=== PATIENT | male | born 1940 | race Caucasian/White ===

== ENCOUNTER 2023-06-07 12:13 | Day surgery (SDC) | payer MEDICARE, SELFPAY ==
--- NOTE | 2023-06-06 09:18 | P.CONAN_ITS ---
Documented by User: Eboni Okeefe NP 06/06/23 09:18 HPI - Anesthesia Eval Consult details Narrative: 83yo M for Upper Endoscopy [facility] Past Medical History Medical History Attention to nephrostomy Aortic root aneurysm Enlarged prostate Back pain Chronic kidney disease Hyperlipidemia Hypothyroidism HTN (hypertension) Surgical History Surgical History History of bilateral knee replacement Social History Social History Tobacco use type: Cigar Are you DNR?: No Advance Directives: No Advance Directives Information Provided: Yes Recently lost weight without trying: No Meds Allergies Allergy/AdvReac Type Severity Reaction Status Date / Time No Known Allergies Allergy Unverified 06/06/23 07:03 Home Medications Medication Instructions Recorded Confirmed Last Taken Type amlodipine 5 mg tablet 5 mg PO DAILY 06/06/23 06/07/23 History atenolol 25 mg tablet 25 mg PO DAILY 06/06/23 06/07/23 History colchicine (gout) 0.6 mg tablet 0.6 mg PO BID 06/06/23 Unknown History folic acid 1 mg tablet 1 mg PO DAILY 06/06/23 Unknown History levothyroxine 125 mcg tablet PO 06/06/23 06/07/23 History Exam Exam Date and Time: June 06, 2023 0918 Assessment and Plan Assessment Anesthesia Assessment: Chart Reviewed Documented by User: Beata Toledo MD 06/07/23 13:48 [facility] Past Medical History Medical History Attention to nephrostomy Aortic root aneurysm Enlarged prostate Back pain Chronic kidney disease Hyperlipidemia Hypothyroidism HTN (hypertension) Family History Family history of problems with anesthesia: No Surgical History Surgical History History of bilateral knee replacement History of Problems with Anesthesia: No Social History Social History Tobacco use type: Cigar Are you DNR?: No Advance Directives: No Advance Directives Information Provided: Yes Recently lost weight without trying: No Meds Allergies Allergy/AdvReac Type Severity Reaction Status Date / Time No Known Allergies Allergy Unverified 06/06/23 07:03 Home Medications Medication Instructions Recorded Confirmed Last Taken Type amlodipine 5 mg tablet 5 mg PO DAILY 06/06/23 06/07/23 History atenolol 25 mg tablet 25 mg PO DAILY 06/06/23 06/07/23 History colchicine (gout) 0.6 mg tablet 0.6 mg PO BID 06/06/23 Unknown History folic acid 1 mg tablet 1 mg PO DAILY 06/06/23 Unknown History levothyroxine 125 mcg tablet PO 06/06/23 06/07/23 History Exam Airway Mallampati Class: II TM Dist: >3cm Neck ROM: Limited Loose/Missing/Broken Teeth: Lower Heart: rrr Lungs: cta Assessment and Plan Assessment Anesthesia Assessment: Anesthesia Plan Discussed Final Anesthetic Review Family History of Problems with Anesthesia: No History of Problems with Anesthesia: No NPO: Yes ASA Class: III Final Preanesthetic Review: No Changes in Pt Med Stat, Meds/Allgs Chart Reviewed, Consent Obtained/Reviewed and Anes Risks/Benef Reviewed Patient Risk: Intermediate Procedure Risk: Intermediate Anesthetic Plan Anesthetic Plan: MAC: Disposition: Standard PACU
[2023-06-07 12:38] VITALS: BMI 32.7
[2023-06-07 12:45] VITALS: BP 139/82; PULSE 65; RESP 18; TEMP 36.1; O2SAT 97
[2023-06-07] MEDS: Lactated Ringers 1,000 ML 100 ML IVCONT (13:13)
--- NOTE | 2023-06-07 13:54 | MHC.SHP ---
Pre-Procedural Eval Section A Date of Service: 06/07/23 Section B Chief Complaint: u Details of Present Illness: see H&P no changes Relevant Family History (Specify if Yes): No Relevant Social History: None Present Medications: see Short Stay Collaborative assessment Medical History: No relevant PMH History of Previous Operations: No relevant previous surgery Allergies: Allergies Allergy/AdvReac Type Severity Reaction Status Date / Time No Known Allergies Allergy Unverified 06/06/23 07:03 Review of Systems Sugical H&P ROS: Negative: Constitution, Cardiovascular, Respiratory, Neurological, Psychiatric, Hem-Onc, Allergic/Immunologic, Gastrointestinal, Genitourinary, Musculoskeletal, Integumentary, Endocrine and Eyes/Ears/Nose/Throat Exam Surgical H&P Exam: Normal: HEENT, Normal: Heart, Normal: Lungs, Normal: Extremities, Normal: Abdomen, Normal: Skin and Normal: Neurological Plan Diagnosis/Plan: Unchanged I have reviewed the history and physical and performed a pertinent physical examination on my patient. No changes have occurred unless specified. Time Spent With Patient Time: Total time managing care of this patient today ____ minutes.
--- NOTE | 2023-06-07 14:30 | P.BOP_ITS ---
Brief Operative Note Date of Service: 06/07/23 Pre-op diagnosis: dysphagia abnormal barium swallow Post-op diagnosis: same Surgeon: Lit Fall Anesthesia: MAC Was an Motors And Generators Inspector used for this Procedure?: No Estimated blood loss (mL): 2 Pathology: other Condition: stable Disposition: PACU
[2023-06-07 14:34] VITALS: BP 96/53; PULSE 59; RESP 16; TEMP 36.1; O2SAT 94
[2023-06-07 14:49] VITALS: BP 101/63; PULSE 64; RESP 20; TEMP 36.3; O2SAT 97
--- NOTE | 2023-06-07 23:34 | OP_ITS ---
DATE OF SERVICE: 06/07/2023 SURGEON: Lit Fall MD INDICATIONS: Dysphagia and abnormal barium swallow. PREOPERATIVE DIAGNOSIS: POSTOPERATIVE DIAGNOSIS: PROCEDURE PERFORMED: Upper endoscopy with biopsy and balloon dilation. ESTIMATED BLOOD LOSS: COMPLICATIONS: ANESTHESIA: Monitored anesthesia care. ASSISTANTS: SPECIMENS: DESCRIPTION OF PROCEDURE: A history and physical was performed. The risks and benefits of the procedure were explained to the patient. Informed consent was obtained. The patient was placed in the left lateral decubitus position. The Olympus video gastroscope was introduced into the esophagus, stomach, and duodenum. Examination was performed. The scope was removed. He tolerated the procedure well and was returned to the recovery area in stable condition. FINDINGS: The upper esophageal sphincter was somewhat tight subjectively. No mass was identified. The esophagus was otherwise normal. The lower esophageal sphincter was widely patent. There was no esophagitis. Balloon dilation of the upper esophageal sphincter was performed at 8 to 18 mm, in the lower esophageal sphincter to 20 mm with a through the scope balloon inflated to its recommended pressure for 60 seconds. Stomach: The stomach showed 2 small gastric polyps, which were biopsied. These were present in the body and fundus and had the appearance of fundic gland polyps. Antral biopsies were also obtained. Duodenum: The bulb and 2nd portion were normal. IMPRESSION: 1. Dysphagia. 2. Gastric polyps. RECOMMENDATION: Follow up the biopsy results. MD GARETT Deluca/KIRILL / [id number]
== END 2023-06-07 15:17 | disposition home or self-care (01) ==
PROVIDERS: PCP Internal Medicine; Visit Provider Internal Medicine Gastroenterology
PROC: 0DJ08ZZ Inspection of Upper Intestinal Tract, Via Natural or Artificial Opening Endoscopic (ICD-10-PCS; CPT 43235; principal; 2023-06-07 13:40)
DX: R13.19 Other dysphagia (principal); K31.7 Polyp of stomach and duodenum; I12.9 Hypertensive chronic kidney disease with stage 1 through stage 4 chronic kidney disease, or unspecified chronic kidney disease; F17.290 Nicotine dependence, other tobacco product, uncomplicated; N18.9 Chronic kidney disease, unspecified; E03.9 Hypothyroidism, unspecified; E78.5 Hyperlipidemia, unspecified; Z79.899 Other long term (current) drug therapy
CPT/HCPCS: 43249; 43239; 88305; 88342; C1726

== ENCOUNTER 2024-04-30 09:40 | Outpatient (AMB) | payer MEDICARE, SELFPAY ==
--- NOTE | 2024-04-30 09:53 | A.OFFVIS_ITS ---
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 He describes his pains as sharp in nature. His pains have gotten worse over the last few years in spite of continued non operative treatments. The patient did do quite a bit of heavy weightlifting in the past for exercise. He has had cortisone injections in the past which gave him fairly good relief. Would like to hold off on surgery if at all possible. He has tried Tylenol and anti-inflammatory medicines which gave him minimal relief. Accompanied by: Spouse Allergies No Known Allergies Allergy (Verified 04/30/24 09:57) Medication List - Last Reconciled 05/01/24 by Clive Griffith MD amlodipine 5 mg PO DAILY atenolol 25 mg PO DAILY folic acid 1 mg PO DAILY levothyroxine PO PFSH Medical History Attention to nephrostomy Aortic root aneurysm Enlarged prostate Back pain Chronic kidney disease Hyperlipidemia Hypothyroidism HTN (hypertension) Surgical History History of bilateral knee replacement Social History Tobacco use type: Cigar Physical Exam Const Other: Well-nourished well-developed very friendly male awake alert and oriented x3 in no acute distress Extrem Other: Bilateral upper extremity examination shows good capillary refill, no skin lesions noted, normal sensation light touch Bilateral shoulder examination shows forward flexion to 160 degrees, external rotation to 40 degrees, internal rotation to level L4, mild crepitus with range of motion, tenderness over his acromioclavicular joints, positive impingement signs, 4+ out of 5 strength with supraspinatus testing, no instability Office Procedures Joint Injection/Aspiration Joint Injection/Aspiration Primary Site: left shoulder Prep: site was prepped using aseptic technique Injected: 40 mg of, DepoMedrol and 1% plain lidocaine Procedure: The patient tolerated the procedure well Coding 16114 - Large joint Procedure code (CPT) selection complete Joint Injection/Aspiration Joint Injection/Aspiration Primary Site: right shoulder Prep: site was prepped using aseptic technique Injected: 40 mg of, DepoMedrol and 1% plain lidocaine Procedure: The patient tolerated the procedure well Coding - Large joint Procedure code (CPT) selection complete Results Reviewed Results Reviewed: X-rays of the patient's bilateral shoulder show moderate glenohumeral joint degenerative changes, severe acromioclavicular joint narrowing, type 2 acromion, no acute bony abnormalities Assessment & Plan Assessment & Plan (1) Left shoulder pain: Code(s): M25.512 - Pain in left shoulder Category: Medical (2) Right shoulder pain: Code(s): M25.511 - Pain in right shoulder Category: Medical Plan Mr. Santos presents with bilateral shoulder pains due to glenohumeral joint degenerative changes as well as impingement syndrome, adhesive capsulitis and acromioclavicular joint arthritis. I had a lengthy discussion with the patient regarding the treatment options. The risks and benefits of bilateral shoulder cortisone injections were discussed at length with the patient. The patient wished to proceed. He tolerated the injections well. He will continue with his home stretching program to prevent stiffness. He will contact me prior to his follow-up appointment in 3 months should any questions or concerns arise. Feel free to call me at any time should questions regarding his orthopedic management arise. Thank you very much for asking me to see this very friendly gentleman. I spent 20 minutes in reviewing the patient's records and imaging studies, seeing the patient and documenting in the medical record. Orders: Orders XR shoulder LT min 2V 04/30/24 M25.512 - Pain in left shoulder XR shoulder RT min 2V 04/30/24 M25.511 - Pain in right shoulder AMB Joint Injection/Aspiration 04/30/24 M25.512 - Pain in left shoulder AMB Joint Injection/Aspiration 04/30/24 M25.511 - Pain in right shoulder Referrals Pain Management Referral M54.50 - Low back pain, unspecified Coding Level of Care Code New Pt Level 3 (24461) Diagnoses Left shoulder pain M25.512 Right shoulder pain M25.511 CPT Codes Coding - 54352 Large joint: 53746 - Large joint ([id number]) Coding - Large joint: 90387 - Large joint ([id number])
== END 2024-04-30 10:29 | disposition home or self-care (01) ==
PROVIDERS: PCP Internal Medicine; Visit Provider Orthopaedic Surgery
DX: M25.512 Pain in left shoulder (principal); M25.511 Pain in right shoulder
CPT/HCPCS: 20610; 99203

== ENCOUNTER 2024-04-30 10:44 | Outpatient (REF) | payer MEDICARE, SELFPAY ==
--- NOTE | ~2024-04-30 | XR_ITS ---
EXAMINATION: XR SHOULDER, RIGHT CLINICAL INFORMATION: M25.511 - Pain in right shoulder COMPARISON: None TECHNIQUE: Two views of the shoulder. FINDINGS: No acute fracture or dislocation. Advanced osteoarthritis of the glenohumeral joint with near complete loss of joint space and bulky osteophytes. Loss of subacromial joint space which can be seen in the setting of rotator cuff pathology. Chronic appearing erosion of the distal aspect of the clavicle which may be posttraumatic or atraumatic. Soft tissues are unremarkable. XR/XR shoulder RT min 2V IMPRESSION: 1. Advanced osteoarthritis of the glenohumeral joint with near complete loss of joint space and bulky osteophytes. 2. Loss of subacromial joint space which can be seen in the setting of rotator cuff pathology. 3. Chronic appearing erosion of the distal aspect of the clavicle which may be posttraumatic or atraumatic. Electronically signed by: Haylie Monae MD 05/23/2024 05:02 PM EDT
--- NOTE | ~2024-04-30 | XR_ITS ---
EXAMINATION: XR SHOULDER, LEFT CLINICAL INFORMATION: M25.512 - Pain in left shoulder COMPARISON: None TECHNIQUE: Two views of the shoulder. FINDINGS: No acute fracture or dislocation. Moderate osteoarthritis of the shoulder with loss of glenohumeral and acromioclavicular joint space. Soft tissues are unremarkable. XR/XR shoulder LT min 2V IMPRESSION: * Moderate degenerative changes of the shoulder. Electronically signed by: Haylie Monae MD 05/23/2024 08:11 PM EDT
== END 2024-04-30 10:45 | disposition home or self-care (01) ==
LOC: HO.HOSX 10:44
PROVIDERS: Visit Provider Orthopaedic Surgery
DX: M25.512 Pain in left shoulder (principal); M25.511 Pain in right shoulder
CPT/HCPCS: 20610; 73030; 99202; J1010

== ENCOUNTER 2024-08-23 15:15 | Outpatient (AMB) | payer MEDICARE, SELFPAY ==
--- NOTE | 2024-08-23 15:22 | MHC.OFFVIS ---
Intake Visit Reasons: ED/BPH with LUTS Intake Note: Patient is present for ED/BPH WITH LUTS Urology Medication:NONE Antibiotic Allergy:NONE Blood Thinner:NONE TODAY'S PVR: 0ML'S Broke Beater Required: No Allergies No Known Allergies Allergy (Verified 08/23/24 15:24) HPI Comments Details: Sherman is a pleasant male. He is a patient of Dr. Calderón. He is seen for the following urologic conditions - lower urinary tract symptoms Previous patient of [facility] Mina for [facility] Had previously been on different combination medications for lower urinary tract symptoms At 1 point had been on testosterone for replacement Currently that is not an issue Is noticing nocturia times 2-3 Weakness of stream Previous up tired effects from alpha blockers including dizziness Re-initiate finasteride [facility] Medical History Attention to nephrostomy Aortic root aneurysm Enlarged prostate Back pain Chronic kidney disease Hyperlipidemia Hypothyroidism HTN (hypertension) Surgical History History of bilateral knee replacement Social History Tobacco use type: Cigar Review of Systems Const Denies chills and Denies fever(s) Card Reports no additional complaints and Denies syncope Resp Denies cough GI Denies abdominal pain and Denies heartburn Reports as per HPI and Denies change in libido Neuro Denies syncope Psych Denies change in libido Endo Denies change in libido Physical Exam Const General: cooperative, healthy appearing, comfortable and no acute distress Orientation/consciousness: patient oriented x3 HEENT Face and sinus: Yes normal facial exam Mouth: moist mucous membranes Neck Neck: Yes normal visual inspection, Yes full ROM and Yes trachea midline Chest Chest palpation & inspection: normal inspection of the chest Resp Effort & Inspection: normal respiratory effort, able to speak in complete sentences and no respiratory distress GI Inspection: Yes normal to inspection Back/Spine/Pelvis Cervical Spine: normal cervical lordosis Thoracic/Lumbar Spine: thoracic and lumbar spine normal to inspection Skin General skin exam: no rashes or lesions noted Neuro General: patient oriented x3, gait normal, tone normal and moves all extremities Extrem General: Yes normal to inspection and Yes capillary refill normal Office Procedures Post Void Residual Post Residual Void Post Void Residual (PVR): 0 [id number] Void Residual by ultrasound Results AMB Urinalysis, Automated UA Leukoctes 0 Martha/uL Last Edit by DAVE Moeller on 08/23/24 15:41 UA Nitrite Negative Last Edit by DAVE Moeller on 08/23/24 15:41 UA Urobilinogen 0.2 mg/dL Last Edit by DAVE Moeller on 08/23/24 15:41 UA Protein 0 mg/dL Last Edit by Fitz Aceves CCM on 08/23/24 15:41 UA pH 6.5 Last Edit by Fitz Aceves [facility] on 08/23/24 15:41 UA Blood 0 Veto/uL Last Edit by Fitz Acevse [facility] on 08/23/24 15:41 UA Specific [place] 1.015 Last Edit by Fitz Aceves CCM on 08/23/24 15:41 UA Ketone Negative Last Edit by DAVE Moeller on 08/23/24 15:41 UA Bilirubin 0 mg/dL Last Edit by Fitz Aceves [facility] on 08/23/24 15:41 UA Glucose 0 mg/dL Last Edit by Fitz Aceves [facility] on 08/23/24 15:41 Results Reviewed Results Reviewed: Laboratory Last Values Urine pH (Auto) 6.5 08/23/24 15:40 Specific [place] (Auto) 1.015 08/23/24 15:40 Urine Protein (Auto) 0 mg/dL 08/23/24 15:40 Glucose (UA)(Auto) 0 mg/dL 08/23/24 15:40 Urine Ketones (Auto) Negative 08/23/24 15:40 Urine Blood (Auto) 0 Veto/uL 08/23/24 15:40 Urine Nitrite (Auto) Negative 08/23/24 15:40 Urine Bilirubin (Auto) 0 mg/dL 08/23/24 15:40 Urine Urobilinogen (Auto) 0.2 mg/dL 08/23/24 15:40 Leukocyte Esterase (Auto) 0 Martha/uL 08/23/24 15:40 Assessment & Plan Assessment & Plan (1) Bladder outlet obstruction: Code(s): N32.0 - Bladder-neck obstruction Category: Medical Plan Restart finasteride Six-month follow-up PVR Orders: Orders AMB Urinalysis Automated 08/23/24 Z13.9 - Encounter for screening, unspecified Medications: New finasteride 5 mg PO DAILY 90 tabs 1RF 90 days N13.8 - Other obstructive and reflux uropathy, N32.0 - Bladder-neck obstruction, N40.1 - Benign prostatic hyperplasia with lower urinary tract symptoms, R33.9 - Retention of urine, unspecified Patient Instructions: Imaging studies, laboratory and physical exam results were discussed and reviewed in detail. No major barriers to patient understanding were identified. An opportunity to ask questions regarding the treatment plan was provided. All questions were answered. The patient expressed understanding and agreement with the above treatment plan. The patient is aware they should contact our office by phone for worsening of their current condition or the appearance of new urologic symptoms. Compliance is encouraged with any medications and followup testing that is ordered. It is a privilege to participate in the urologic care of your patient. If you have any questions or concerns regarding treatment for the above conditions, or other urologic issues, please do not hesitate to contact me. The office telephone contact is [phone]. This note is constructed using voice recognition software. While every effort has been made to ensure accuracy city council member errors may have been included. Yours sincerely, Dr Chavez Zhou MD, [facility] Providers of Expert, Compassionate Care for the Genitourinary System Coding Level of Care Code New Pt Level 4 (64691) Diagnoses Bladder outlet obstruction N32.0 CPT Codes Post Residual Void - PVR CPT Code: 06095-Mlao Void Residual by ultrasound ([id number])
== END 2024-08-23 15:54 | disposition home or self-care (01) ==
PROVIDERS: PCP Internal Medicine; Visit Provider Urology
DX: Z13.9 Encounter for screening, unspecified (principal)
CPT/HCPCS: 99204

== ENCOUNTER → 2024-08-23 15:15 | Outpatient (BNVA) | payer MEDICARE, SELFPAY | PROVIDERS: PCP Internal Medicine; Visit Provider Urology | DX: N40.1 Benign prostatic hyperplasia with lower urinary tract symptoms (principal); R35.1 Nocturia; R39.12 Poor urinary stream; N32.0 Bladder-neck obstruction; N13.8 Other obstructive and reflux uropathy; R33.8 Other retention of urine | CPT/HCPCS: 51798; 81003; 99202 ==

== ENCOUNTER 2024-08-29 13:18 | Outpatient (AMB) | payer MEDICARE, SELFPAY ==
--- NOTE | 2024-08-29 13:23 | MHC.OFFVIS ---
Vital Signs 08/29/24 13:25 Height 5 ft 10 in Weight 228 lb BMI 32.7 Intake Visit Reasons: Bilateral shoulder pain and stiffness Intake Note: Sherman is a 84 year old male who presents with complaints of progressively worsening bilateral shoulder pains and stiffness. He describes his pains as achy in nature. He has done physical therapy exercises which aggravated his pain. He has had cortisone injections in the past which gave him temporary relief. He denies any weakness. He has tried Tylenol and anti-inflammatory medicines which gave him minimal relief. At this point his right shoulder symptoms are more severe than are his left. Allergies No Known Allergies Allergy (Verified 08/29/24 13:26) Medication List - Last Reconciled 08/29/24 by Clive Griffith MD amlodipine 5 mg PO DAILY atenolol 25 mg PO DAILY finasteride 5 mg PO DAILY 90 days folic acid 1 mg PO DAILY levothyroxine PO PFSH Medical History Attention to nephrostomy Aortic root aneurysm Enlarged prostate Back pain Chronic kidney disease Hyperlipidemia Hypothyroidism HTN (hypertension) Surgical History History of bilateral knee replacement Social History Tobacco use type: Cigar Physical Exam Vital Signs: BMI result Body Mass Index 32.7 Const Other: Well-nourished well-developed very friendly male awake alert and oriented x3 in no acute distress Extrem Other: Bilateral upper extremity examination shows good capillary refill, no skin lesions noted, normal sensation light touch Bilateral shoulder examination shows forward flexion to 130 degrees, external rotation at 30 degrees, internal rotation to his back pocket, 4+ out of 5 strength with supraspinatus testing, positive impingement signs, tenderness over his acromioclavicular joint, no instability Office Procedures AMB Joint Injection/Aspiration Joint Injection/Aspiration Primary Site: left shoulder Prep: site was prepped using aseptic technique Injected: 40 mg of, DepoMedrol and 1% plain lidocaine Procedure: The patient tolerated the procedure well Coding 08343 - Large joint Procedure code (CPT) selection complete AMB Joint Injection/Aspiration Joint Injection/Aspiration Primary Site: right shoulder Prep: site was prepped using aseptic technique Injected: 40 mg of, DepoMedrol and 1% plain lidocaine Coding 85808 - Large joint Procedure code (CPT) selection complete Results Reviewed Results Reviewed: X-rays of the patient's bilateral shoulders taken previously show severe acromioclavicular joint narrowing, mild to moderate glenohumeral joint degenerative changes, a type 3 acromion, no acute bony abnormalities Assessment & Plan Assessment & Plan (1) Impingement syndrome of left shoulder: Code(s): M75.42 - Impingement syndrome of left shoulder Category: Medical (2) Impingement of right shoulder: Code(s): M25.811 - Other specified joint disorders, right shoulder Category: Medical Plan Mr. Santos presents with bilateral shoulder pains and stiffness, right greater than left, due to acromioclavicular joint arthritis, impingement syndrome, glenohumeral joint arthritis and adhesive capsulitis. The risks and benefits of bilateral shoulder cortisone injections were discussed at length with the patient. The patient wished to proceed. Tolerated the injections well. If he does not get lasting relief from the cortisone injections he is considering undergoing right shoulder arthroscopic surgery early next year. That surgery would involve right shoulder diagnostic arthroscopy with arthroscopic distal clavicle excision, acromioplasty, capsular release and manipulation under anesthesia. The patient will contact my office to pick a surgery date if he chooses to do so. Otherwise I will see him back in 3 months' time. Feel free to call me at any time should questions regarding his orthopedic management arise. I spent 20 minutes in reviewing the patient's records and imaging studies, seeing the patient and documenting in the medical record. Orders: Orders AMB Joint Injection/Aspiration 08/29/24 M25.811 - Other specified joint disorders, right shoulder AMB Joint Injection/Aspiration 08/29/24 M75.42 - Impingement syndrome of left shoulder Coding Level of Care Code Est Pt Level 3 (58177) Complex EM visit Add On G2211 Diagnoses Impingement syndrome of left shoulder M75.42 Impingement of right shoulder M25.811 CPT Codes Coding - 65635 Large joint: 60463 - Large joint ([id number]) Coding - 48067 Large joint: 05579 - Large joint ([id number])
[2024-08-29 13:25] VITALS: BMI 32.7
== END 2024-08-29 13:38 | disposition home or self-care (01) ==
PROVIDERS: PCP Internal Medicine; Visit Provider Orthopaedic Surgery
DX: M75.42 Impingement syndrome of left shoulder (principal); M25.811 Other specified joint disorders, right shoulder
CPT/HCPCS: 20610; 99213

== ENCOUNTER → 2024-08-29 13:18 | Outpatient (BNVA) | payer MEDICARE, SELFPAY | PROVIDERS: PCP Internal Medicine; Visit Provider Orthopaedic Surgery | DX: M75.42 Impingement syndrome of left shoulder (principal); M25.811 Other specified joint disorders, right shoulder; M25.512 Pain in left shoulder; M25.511 Pain in right shoulder; M25.612 Stiffness of left shoulder, not elsewhere classified; M25.611 Stiffness of right shoulder, not elsewhere classified | CPT/HCPCS: 20610; 99212; J1010; J2003 ==

== ENCOUNTER 2024-11-27 13:06 | Outpatient (AMB) | payer MEDICARE, SELFPAY ==
--- NOTE | 2024-11-27 13:09 | A.OFFVIS_ITS ---
Intake Visit Reasons: Bilateral shoulder pains Intake Note: Sherman is an 84 year old male who presents with complaints of bilateral shoulder pains. He describes his pains as sharp in nature. He has had cortisone injections in the past which gave him fairly good relief. He has also done physical therapy exercises which aggravated his pain. He has tried Tylenol which gives him only mild relief. He is not able to tolerate anti-inflammatory medicines. He wishes to hold off on surgery if at all possible. Allergies No Known Allergies Allergy (Verified 11/27/24 13:14) Medication List - Last Reconciled 11/27/24 by Clive Griffith MD amlodipine 5 mg PO DAILY atenolol 25 mg PO DAILY finasteride 5 mg PO DAILY 90 days folic acid 1 mg PO DAILY levothyroxine PO PFSH Medical History Attention to nephrostomy Aortic root aneurysm Enlarged prostate Back pain Chronic kidney disease Hyperlipidemia Hypothyroidism HTN (hypertension) Surgical History History of bilateral knee replacement Social History Tobacco use type: Cigar Physical Exam Const Other: Well-nourished well-developed very friendly male awake alert and oriented x3 in no acute distress Extrem Other: Bilateral upper extremity examination shows good capillary refill, no skin lesions noted, normal sensation light touch Bilateral shoulder examination shows forward flexion to 150 degrees, external rotation at 30 degrees, internal rotation to 40 degrees, positive impingement signs, no instability Office Procedures AMB Joint Injection/Aspiration Joint Injection/Aspiration Primary Site: right shoulder Prep: site was prepped using aseptic technique Injected: 40 mg of, DepoMedrol and 1% plain lidocaine Procedure: The patient tolerated the procedure well Coding - Large joint Procedure code (CPT) selection complete AMB Joint Injection/Aspiration Joint Injection/Aspiration Primary Site: left shoulder Prep: site was prepped using aseptic technique Injected: 40 mg of, DepoMedrol and 1% plain lidocaine Procedure: The patient tolerated the procedure well Coding 78075 - Large joint Procedure code (CPT) selection complete Assessment & Plan Assessment & Plan (1) Impingement syndrome of left shoulder: Code(s): M75.42 - Impingement syndrome of left shoulder Category: Medical (2) Impingement of right shoulder: Code(s): M25.811 - Other specified joint disorders, right shoulder Category: Medical Plan Mr. Santos presents with bilateral shoulder pains due to impingement syndrome. The risks and benefits of bilateral shoulder cortisone injections were discussed at length with the patient. The patient wished to proceed. Tolerated the injections well. He will continue with his home stretching program. He will contact me prior to his follow-up appointment in 3 months should any quest ions or concerns arise. If he does not get lasting relief from the cortisone injection therapy we will further discuss the risks and benefits of arthroscopic shoulder surgery. I spent 22 minutes in reviewing the patient's records and imaging studies, seeing the patient and documenting in the medical record. Orders: Orders AMB Joint Injection/Aspiration Today M75.42 - Impingement syndrome of left shoulder AMB Joint Injection/Aspiration Today M25.811 - Other specified joint disorders, right shoulder Coding Level of Care Code Est Pt Level 3 (44487) Complex EM visit Add On G2211 Diagnoses Impingement syndrome of left shoulder M75.42 Impingement of right shoulder M25.811 CPT Codes Coding - 01234 Large joint: 69958 - Large joint ([id number]) Coding - 53987 Large joint: 06187 - Large joint ([id number])
--- OUTSIDE RECORDS SUMMARY | 2024-11-27 15:31 | XMS_ITS ---
Author Organization [facility] Address [address] [facility] [address] [place] [phone] Care Team Providers Care Terminal Gauger Name Role Phone Ladonna Dawson Primary Care Provider Marilyn vailable Lit Fall Jr REASON FOR VISIT pathology Encounters Encounter Location Date Provider Diagnosis [facility] [address] [facility] [address] [place] [phone] 06/15/2023 Lit Fall Jr Plan Of Treatment No Information Progress Notes * SEBASTIAN SANTOS ADOB: (83 yo M)Acc No.[id number]:06/15/2023 Patient:?INDERJIT SANTOSJEET Kelly A :1940???Age:83 Y???Sex:Male Address:[address] [facility], [place], [address] * true * Date:? Generated for Sushil yañez/Reggie/eTransmitting on:?11/27/2024 03:30 PM EDT
--- OUTSIDE RECORDS SUMMARY | 2024-11-27 15:31 | XMS_ITS | Clinical Summary ---
Author Organization [facility] Address [address] [place] [address] Phone Care Team Providers Care Hot Tamale Man Name Role Phone Unavailable Primary Care Provider Unavailabl e Social History Tobacco Use Types Packs/Day Years Used Date Smoking Tobacco: Never Assessed Education Answer Date Recorded Are you interested in more education? Not on alierza e 01/06/2023 Are you concerned about learning? Not on file 01/06/2023 No 01/06/2023 No 01/06/2023 Digital Access Answer Date Recorded No 02/04/2023 No 02/04/2023 No 02/04/2023 Reliable internet access at home? Not on file 02/04/2023 Device with a working camera? Not on file Sex and Gender Information Value Date Recorded Sex Assigned at Not on file Gender Identity Not on file Sexual Orientation Not on file Plan of Treatment Health Maintenance Due Date Last Done Comments Adult Td,Tdap Booster 1940 DEPRESSION SCREENING 1952 HEPATITIS B SCREENING 1958 PNEUMOCOCCAL VACCINES (50+ y ears) (1 of 1 - PCV) 1990 ZOSTER VACCINES (1 of 2) 1990 RSV VACCINE (1 - 1-dose 75+ series) 2015 INFLUENZA VACCINE (#1) 2024 COVID-19 VACCINE (2023-2 5 season) 2024 HEPATITIS A VACCINES Aged Out No long er eligible based on patient's age to complete this topic HEPATITIS B VACCINES Aged Out No long er eligible based on patient's age to complete this topic HIB VACCINES Aged Out No longer eligi ble based on patient's age to complete this topic MENINGOCOCCAL VACCINES (ACWY) Aged Out No longer eligible based on patient's age to complete this topic Medical Devices Not on file Theocles, Theoclitos Personal/Family Self 1940 [address] [place] [address] Theocles, Theoclitos Personal/Family Self 1940 [address] [place] [address] Theocles, Theoclitos Personal/Family Self 1940 [address] [place] [address] Theocles, Theoclitos Personal/Family Self 1940 [address] [place] [address] Theocles, Theoclitos Personal/Family Self 1940 [address] [place] [place] [address] Theocles, Theoclitos Personal/Family Self 1940 [address] [place] [address] Theocles, Theoclitos Personal/Family Self 1940 [address] [place] [place] [address] Theocles, Theoclitos Personal/Family Self 1940 [address] [place] [place] [address] Additional Source Comments The information contained in this document represents components of the legal health record. It is not the complete legal health record.[facility]
--- OUTSIDE RECORDS SUMMARY | 2024-11-27 15:31 | XMS_ITS | Patient Health Record ---
Author Organization [facility] Address [address] [place] [phone] Care Team Providers Care Vice President Of Finance Name Role Phone Ladonna Dawson Primary Care Provider Lit Diaz Jr Unavailable Allergies No Known Allergies Reason For Referral No Information Medications Medication SIG (Take, Route, Frequency, Duration) Notes Start Date End Date Status amLODIPine Besy-Benazepril HCl 2.5-10 MG as directed Orally Active Centrum Silver 50+Men - as directed Orally Active Garlique 400 MG as directed Orally Active Levothyroxine Sodium 125 MCG 1 tablet in the morning on an empty stomach Orally Once a day for 30 day(s) Active Folic Acid 1 MG 1 tablet Orally Once a day for 30 day(s) Active Immunizations Vaccine Route Administration Date Status Comme nts Influenza Unknown 05/08/2023 Refused Social History Tobacco Use: Social History Observation Description Date Details (start date - stop date) Never Smoker NA - NA Tobacco Use/Smoking Question Answer Notes Patient is a nonsmoker Alcohol Screen Question Answer Notes Did you have a drink contain ing alcohol in the past year? Yes How often did you have a dri nk containing alcohol in the past year? 4 or more times a week (4 points) How many drinks did you have on a typical day when you were drinking in the past year? 1 or 2 drinks (0 point) How often did you have 6 or more drinks on one occasion in the past year? Never (0 point) Points 4 Interpretation Positive Problems Problem Type SNOMED Code ICD Code Onset Dates Problem Status W/U Status Risk Notes Problem 34339504 Other dysphagia (R13.19) Active confirmed Problem Dysphagia (97323366) Dysphagia (R13.10) Active confirmed Problem 107877114 Abnormal barium swallow (R93.3) Active confirmed Plan Of Treatment Future Test Test Name Order Date UPPER GI ENDOSCOPY 05/08/2023 Insurance Providers Payer Name Payer Address Payer Phone Subscriber Number Group Number Insured Name Patient Relationship to Insured Coverage Start Date Coverage End Date MEDICARE OF [place] [address] [place] [address] [id number] THEOCLES, THEOCLITOS Self - patient is the insured [employer] [address] [place] [address] [phone] [id number] THEOCLES, THEOCLITOS Self - patient is the insured Medical (General) History Medical History History ICD Code Hypertension Hypothyroidism Hyperlipidemia Chronic kidney disease Back pain Enlarged prostate Aortic root aneurysm Surgical History Surgery Date(Month/Year) knee replacements 2009, 2016 bilateral
--- OUTSIDE RECORDS SUMMARY | 2024-11-27 15:31 | XMS_ITS ---
Author Organization [facility] Address [address] [place] [phone] Care Team Providers Care Welder Machine Operator Name Role Phone Ladonna Dawson Primary Care Provider Marilyn vailaLit Leal Jr [phone] REASON FOR VISIT dysphagia Problems Problem Type SNOMED Code ICD Code Onset Dates Problem Status W/U Status Risk Notes Problem Dysphagia (91526163) Dysphagia (R13.10) Active confirmed Encounters Encounter Location Date Provider Diagnosis [facility] [place] [address] [place] [phone] 06/07/2023 Lit Fall Jr Dysphagia R13.10 and Abnormal barium swallow R93.3 Assessments Encounter Date Diagnosis (ICD Code) Assessment Notes Treatment Notes Treatment Clinical Notes Section Notes 06/07/2023 Dysphagia (ICD-10 - R13.10) 06/07/2023 Abnormal barium swallow (ICD-10 - R93.3) Plan Of Treatment No Information Progress Notes * SEBASTIAN SANTOS ADOB: (84 yo M)Acc No.[id number]:06/07/2023 EGD/MAC Patient:?LOPEZ SANTOS Provider:?Lit Fall MD :1940???Age:83 Y???Sex:Male Richi e:06/07/2023 Address:[address] [place], [place] [id number] Pcp:Ladonna Calderón Subjective: * Chief Complaints: * ???1. Dysphagia. * Medical History:? Objective: * Vitals:? Assessment: * Assessment: 1.?Dysphagia - R13.10 (Prima ry)???2.?Abnormal barium swallow - R93.3??? Plan: * Treatment: * Procedure Codes:?05222 UPPER GI ENDOSCOPY, BIOPSY, 31130 ESOPH ENDOSCOPY, DILATION, Modifiers: 59 * * The named appointment provid er may or may not be the originator of this progress note, and it is not deemed complete until electronically signed by the appointment provider. Sign off status: Pending * Provider:?Lit Fall MD Date:?0 06/07/2023 Generated for Sushil yañez/Reggie/Joeitting on:?11/27/2024 03:30 PM EDT
--- OUTSIDE RECORDS SUMMARY | 2024-11-27 15:31 | XMS_ITS | Clinical Summary ---
Author Organization [facility] Address [address] [place] [address] Care Team Providers Care Environmental Health Physician Name Role Phone Unavailable Primary Care Provider Unavailabl e Surgical History Surgery Date Site/Laterality Comments TOTAL KNEE ARTHROPLASTY 2009 PROCEDURE:TOTAL KNEE ARTHROPLASTY;COMMENT:right LITHOTRIPSY PROCEDURE:LITHOTRIPSY COLONOSCOPY PROCEDURE:COLONOSCOPY TOTAL KNEE ARTHROPLASTY 01/18/2017 Left PROCEDURE:TOTAL KNEE ARTHROPLASTY;COMMENT:Procedure: REPLACEMENT TOTAL KNEE; Surgeon: Alan Hammond MD; Location: [facility]); Service: Orthopedics; Laterality: Left; Medical History Medical History Date Comments Osteoarthritis DX:Osteoarthriti s Diverticulosis DX:Diverticulosi s Syncope 06/10/2016 DX:Syncope Hypertension DX:Hypertension Hyperlipidemia DX:Hyperlipidemi a CKD (chronic kidney disease) DX: CKD (chronic kidney disease);COMMENT:Stage 2-3 Kidney stone DX:Kidney stone GERD (gastroesophageal reflux disease) DX:GERD (gastroesophageal reflux disease) Urinary retention DX:Urinary ret ention Hypothyroidism DX:Hypothyroidis m Depression DX:Depression Anxiety DX:Anxiety Primary osteoarthritis of left knee 01/11/2017 DX:Primary osteoarthritis of left knee Social History Tobacco Use Types Packs/Day Years Used Date Smoking Tobacco: Some Days Smokeless Tobacco: Never Alcohol Use Standard Drinks/Week Comments Yes 7 (1 standard drink = 0.6 oz pur e alcohol) Sex and Gender Information Value Date Recorded Sex Assigned at Not on file Legal Sex Male 8:07 AM EST Gender Identity Not on file Sexual Orientation Not on file Obstetrics History Plan of Treatment Health Maintenance Due Date Last Done Comments DTaP,Tdap,and Td Vaccines (1 - Tdap) 1959 Pneumococcal Vaccine: 50+ Ye ars (1 of 1 - PCV) 1990 Zoster Vaccines (1 of 2) 1990 RSV Immunization Patients 60 + Years Old (1 - 1-dose 75+ series) 2015 COVID-19 Vaccine (2023-2 5 season) 2024 Influenza Vaccine (#1) 2024 HIB Vaccines Aged Out No longer eligi ble based on patient's age to complete this topic HPV Vaccines Aged Out No longer eligi ble based on patient's age to complete this topic Hepatitis A Vaccines Aged Out No long er eligible based on patient's age to complete this topic Hepatitis B Vaccines Aged Out No long er eligible based on patient's age to complete this topic IPV Vaccines Aged Out No longer eligi ble based on patient's age to complete this topic MMR Vaccines Aged Out No longer eligi ble based on patient's age to complete this topic Meningococcal ACWY Vaccine Aged Out N o longer eligible based on patient's age to complete this topic Meningococcal B Vacine Aged Out No lo nger eligible based on patient's age to complete this topic RSV Immunization Patients Un joaquin 20 months Aged Out No longer eligible b ased on patient's age to complete this topic Varicella Vaccines Aged Out No longer eligible based on patient's age to complete this topic
--- OUTSIDE RECORDS SUMMARY | 2024-11-27 15:31 | XMS_ITS | Clinical Summary ---
Author Organization [facility] Address [address] [place] [address] Care Team Providers Care Validation Specialist Name Role Phone Unavailable Primary Care Provider Unavailabl e Allergies No known active allergies Medications Medication Sig Dispensed Refills Start Date End Date Status atorvastatin (LIPITOR) tablet 40 mg Take 40 mg by mouth daily. 0 Active levothyroxine (SYNTHROID, LEVOXYL) tablet 150 mcg Take 150 mcg by mouth every morning on an empty stomach. 0 Active ALFUZOSIN HCL ER PO Take 10 mg by mouth every evening after dinner. 0 Active Ascorbic Acid ER 1000 MG TBCR Take 1,000 mg by mouth daily. 0 Active Multiple Vitamins-Minerals (MULTIVITAMIN ADULT PO) Take 1 tablet by mouth daily. 0 Active Garlic (GARLIQUE PO) Take 1 capsule by mouth daily. 0 Active aspirin EC 81 MG EC tablet Take 1 tablet (81 mg total) by mouth 2 (two) times a day after meals. 84 tablet 0 01/18/2017 Active methocarbamol (ROBAXIN) 750 MG tablet Take 1 tablet (750 mg total) by mouth every 6 (six) hours as needed (spasms). 60 tablet 0 01/18/2017 Active oxyCODONE (ROXICODONE) 5 MG immediate release tablet Take 1 tablet (5 mg total) by mouth every 4 (four) hours as needed for pain. 50 tablet 0 01/18/2017 Active senna-docusate (PERICOLACE) 8.6-50 MG Take 1 tablet by mouth 2 (two) times a day. 60 tablet 0 01/18/2017 Active Active Problems Problem Noted Date Diagnosed Date Primary osteoarthritis of left knee 01/11/2017 Social History Tobacco Use Types Packs/Day Years Used Date Smoking Tobacco: Some Days Cigars Smokeless Tobacco: Never Alcohol Use Standard Drinks/Week Comments Yes 7 (1 standard drink = 0.6 oz pur e alcohol) Sex and Gender Information Value Date Recorded Sex Assigned at Not on file Gender Identity Not on file Sexual Orientation Not on file Last Filed Vital Signs Vital Sign Reading Time Taken Comments Blood Pressure 120/63 01/20/2017 9:01 AM EDT Pulse 61 01/20/2017 9:01 AM EDT Temperature 36.5 ??C (97.7 ??F) 01/20/2017 9:01 AM ED T Respiratory Rate 16 01/20/2017 9:01 AM EDT Oxygen Saturation 98% 01/20/2017 9:01 AM EDT Inhaled Oxygen Concentration - - Weight 98.9 kg (218 lb) 01/18/2017 6:27 PM EDT Height 177.8 cm (5' 10 ) 01/18/2017 6:27 PM EDT Body Mass Index 31.28 01/18/2017 6:27 PM EDT Plan of Treatment Not on file Medical Devices Implanted Type Area Golf Instructor Device Identifier Shelf Expiration Date Model / Serial / Lot Cement Simplex P Radiopaque Full Dose Bone 10 Pack - [id number] - [id number] Implanted:Qty: 1 on 01/18/2017 by Alan Hammond MD at [facility] Left: Knee [employer] 04/20/2019 [id number] / / Cement Simplex P Radiopaque Full Dose Bone 10 Pack - [id number] - [id number] Implanted:Qty: 1 on 01/18/2017 by Alan Hammond MD at [facility] and [facility] Left: Knee [employer] 04/20/2019 [id number] / / Component Cr-Flex Option Nexgen G- 76.5x68.5mm Cement - [id number] - [id number] Implanted:Qty: 1 on 01/18/2017 by Alan Hammond MD at [facility] and [facility] Left: Knee [employer] 02/08/2025 [id number] / / [id number] Plate Nexgen [id number] Cement Modular Stem Tivanium Pmma - [id number] - [id number] Implanted:Qty: 1 on 01/18/2017 by Alan Hammond MD at [facility] and [facility] Left: Knee [employer] 11/08/2024 [id number] / / [id number] Component Ptlar Std 9mm 38mm Nexgen Alply Uhmwpe Knee Strl - [id number] - [id number] Implanted:Qty: 1 on 01/18/2017 by Alan Hammond MD at [facility] and [facility] Left: Knee [employer] 04/10/2024 [id number] / / [id number] Insert Cr-Flex Nexgen 7-10 C-H Standard [id number] Net Mold - [id number] - [id number] Implanted:Qty: 1 on 01/18/2017 by Alan Hammond MD at [facility] and [facility] Left: Knee [employer] 01/08/2022 [id number] / / [id number] Kit Cap Knee Pricing Cement Flex Tkr - [id number] - [id number] Implanted:Qty: 1 on 01/18/2017 by Alan Hammond MD at [facility] and [facility] Left: Knee [employer] [id number] / / Advance Directives For more information, please contact: [phone] Latest Code Status on File Code Status Date Activated Date Inactivated Comments Full Code 01/18/2017 5:32 PM 01/20/2017 7:42 PM This code status was ascertained in the following way: discussion with healthcare retail sales representative. Code Status History Code Status Date Activated Date Inactivated Comments Full Code 01/18/2017 10:48 AM 01/18/2017 5:32 PM This code status was ascertained in the following way: discussion with patient.
== END 2024-11-27 13:35 | disposition home or self-care (01) ==
LOC: HO.HOS 13:07
PROVIDERS: PCP Internal Medicine; Visit Provider Orthopaedic Surgery
DX: M75.42 Impingement syndrome of left shoulder (principal); M25.811 Other specified joint disorders, right shoulder
CPT/HCPCS: 20610; 99213

== ENCOUNTER → 2024-11-27 13:06 | Outpatient (BNVA) | payer MEDICARE, SELFPAY | PROVIDERS: PCP Internal Medicine; Visit Provider Orthopaedic Surgery | DX: M75.42 Impingement syndrome of left shoulder (principal); M25.811 Other specified joint disorders, right shoulder | CPT/HCPCS: 20610; 99212; J1010; J2003 ==

== ENCOUNTER 2025-02-25 14:56 | Outpatient (AMB) | payer MEDICARE, SELFPAY ==
--- NOTE | 2025-02-25 15:47 | MHC.OFFVIS ---
Intake Visit Reasons: Six-month follow-up office PVR Intake Note: Patient is present for 6M/PVR Urology Medication:FINASTERIDE Antibiotic Allergy:NONE Blood Thinner:NONE TODAY'S PVR:60ML'S Apparel Manufacture Instructor Required: No Allergies No Known Allergies Allergy (Verified 02/25/25 15:51) HPI Comments Details: Sherman is a pleasant male. He is a patient of Dr. aClderón. He is seen for the following urologic conditions - lower urinary tract symptoms Follow-up from re-trial of finasteride 60 cc PVR Happy with urination Six-month follow-up repeat PVR Previous patient of Dr. Mina for many years at [facility] Had previously been on different combination medications for lower urinary tract symptoms At 1 point had been on testosterone for replacement Currently that is not an issue Presentation with nocturia times 2-3 Weakness of stream Previous up tired effects from alpha blockers including dizziness PFSH Medical History Attention to nephrostomy Aortic root aneurysm Enlarged prostate Back pain Chronic kidney disease Hyperlipidemia Hypothyroidism HTN (hypertension) Surgical History History of bilateral knee replacement Social History Tobacco use type: Cigar Office Procedures Post Void Residual Post Residual Void Post Void Residual (PVR): 60 74493-Wjzi Void Residual by ultrasound Assessment & Plan Assessment & Plan (1) Bladder outlet obstruction: Code(s): N32.0 - Bladder-neck obstruction Category: Medical Plan Six-month follow-up PVR Patient Instructions: This note is constructed using voice recognition software. While every effort has been made to ensure accuracy humanities coordinator errors may have been included. Imaging studies, laboratory and physical exam results were discussed and reviewed in detail. No major barriers to patient understanding were identified. An opportunity to ask questions regarding the treatment plan was provided. All questions were answered. The patient expressed understanding and agreement with the above treatment plan. The patient is aware they should contact our office by phone for worsening of their current condition or the appearance of new urologic symptoms. Compliance is encouraged with any medications and followup testing that is ordered. It is a privilege to participate in the urologic care of your patient. If you have any questions or concerns regarding treatment for the above conditions, or other urologic issues, please do not hesitate to contact me. The office telephone contact is [phone]. Sincerely, Dr Chavez Zhou MD, ABDIFATAH [facility] - Urology Compassionate Specialist Care for the Genitourinary System Coding Level of Care Code Est Pt Level 3 (84423) Complex EM visit Add On G2211 Diagnoses Bladder outlet obstruction N32.0 CPT Codes Post Residual Void - PVR CPT Code: 85470-Fzzz Void Residual by ultrasound ([id number])
--- OUTSIDE RECORDS SUMMARY | 2025-02-25 17:24 | XMS_ITS | Clinical Summary ---
Author Organization [facility] Address [address] [place] [address] Care Team Providers Care Food Court Team Member Name Role Phone Unavailable Primary Care Provider Unavailabl e Surgical History Surgery Date Site/Laterality Comments TOTAL KNEE ARTHROPLASTY 2009 PROCEDURE:TOTAL KNEE ARTHROPLASTY;COMMENT:right LITHOTRIPSY PROCEDURE:LITHOTRIPSY COLONOSCOPY PROCEDURE:COLONOSCOPY TOTAL KNEE ARTHROPLASTY 01/18/2017 Left PROCEDURE:TOTAL KNEE ARTHROPLASTY;COMMENT:Procedure: REPLACEMENT TOTAL KNEE; Surgeon: Alan Hammond MD; Location: [facility] ([facility]); Service: Orthopedics; Laterality: Left; Medical History Medical [...] Vaccines (1 of 2) 1990 RSV Immunization Adult Patie nts (1 - 1-dose 75+ series) 2015 COVID-19 Vaccine (2023-2 5 season) 2024 Influenza Vaccine (Season Ended) 2025 HIB Vaccines Aged Out No longer eligi [...] age to complete this topic Meningococcal B Vaccine Aged Out No l onger eligible based on patient's age to complete this topic RSV Immunization Patients Un joaquin 20 months Aged Out No longer eligible b ased on patient's age to complete this topic Varicella Vaccines Aged Out No longer eligible based on patient's age to complete this topic
== END 2025-02-25 16:18 | disposition home or self-care (01) ==
LOC: HO.HUSH 14:57
PROVIDERS: PCP Internal Medicine; Visit Provider Urology
DX: N32.0 Bladder-neck obstruction (principal)
CPT/HCPCS: 99213; G2211

== ENCOUNTER → 2025-02-25 14:56 | Outpatient (BNVA) | payer MEDICARE, SELFPAY | PROVIDERS: PCP Internal Medicine; Visit Provider Urology | DX: N32.0 Bladder-neck obstruction (principal) | CPT/HCPCS: 51798; 99212 ==

== ENCOUNTER 2025-04-21 14:45 | Outpatient (AMB) | payer MEDICARE, SELFPAY ==
--- NOTE | 2025-04-21 14:48 | A.OFFVIS_ITS ---
Vital Signs 04/21/25 14:52 Height 5 ft 9 in Weight 225 lb BMI 33.2 Intake Visit Reasons: Bilateral shoulder pain and stiffness Intake Note: Sherman is an 84 year old man who presents with complaints of progressively worsening bilateral shoulder pain and stiffness, right greater than left. He describes his pains as sharp in nature. His symptoms have gotten worse over the last few years in spite of continued non operative treatments. He has had cortisone injections in the past which gave him temporary relief. He has also tried Tylenol, anti-inflammatory medicines and physical therapy exercises which gave him minimal relief. He reports difficulty lifting his right hand above shoulder height. Allergies No Known Allergies Allergy (Verified 04/21/25 14:53) Medication List - Last Reviewed 04/21/25 by Meliza Valdes amlodipine 5 mg PO DAILY atenolol 25 mg PO DAILY finasteride 5 mg PO DAILY 90 days folic acid 1 mg PO DAILY levothyroxine PO PFSH Medical History Attention to nephrostomy Aortic root aneurysm Enlarged prostate Back pain Chronic kidney disease Hyperlipidemia Hypothyroidism HTN (hypertension) Surgical History History of bilateral knee replacement Social History Tobacco use type: Cigar Physical Exam Vital Signs: BMI result Body Mass Index 33.2 Const Other: Well-nourished well-developed very friendly male awake alert and oriented x3 in no acute distress Extrem Other: Bilateral upper extremity examination shows good capillary refill, no skin lesions noted, normal sensation light touch Bilateral shoulder examination shows forward flexion to 140 degrees, external rotation of 30 degrees, internal rotation to level L4, 4+ out of 5 strength with supraspinatus testing, positive impingement signs, tenderness over his acromioclavicular joint, no instability Office Procedures AMB Joint Injection/Aspiration Joint Injection/Aspiration Primary Site: right shoulder Prep: site was prepped using aseptic technique Injected: 40 mg of, DepoMedrol and 1% plain lidocaine Procedure: The patient tolerated the procedure well Coding 34662 - Large joint Procedure code (CPT) selection complete AMB Joint Injection/Aspiration Joint Injection/Aspiration Primary Site: left shoulder Prep: site was prepped using aseptic technique Injected: 40 mg of, DepoMedrol and 1% plain lidocaine Procedure: The patient tolerated the procedure well Coding 94405 - Large joint Procedure code (CPT) selection complete Results Reviewed Results Reviewed: X-rays of the patient's bilateral shoulder show severe acromioclavicular joint narrowing, type 2 acromion, moderate glenohumeral joint degenerative changes Assessment & Plan Assessment & Plan (1) Impingement syndrome of left shoulder: Code(s): M75.42 - Impingement syndrome of left shoulder Category: Medical (2) Impingement of right shoulder: Code(s): M25.811 - Other specified joint disorders, right shoulder Category: Medical Plan Mr. Santos presents with bilateral shoulder pains and stiffness due to impingement syndrome, acromioclavicular joint arthritis and adhesive capsulitis. The risks and benefits of bilateral shoulder cortisone injections were discussed at length with the patient. The patient wished to proceed. He tolerated the injections well. If he does not get lasting relief from the cortisone injections he is considering undergoing right shoulder surgery later t his year. Surgery will involve right shoulder arthroscopic distal clavicle excision, right shoulder arthroscopic acromioplasty, right shoulder arthroscopic capsular release and right shoulder manipulation under anesthesia. The patient will follow-up as instructed. Feel free to call me at any time should questions regarding his orthopedic management arise. I spent 22 minutes in reviewing the patient's records and imaging studies, seeing the patient and documenting in the medical record. Orders: Orders AMB Joint Injection/Aspiration 04/21/25 M75.42 - Impingement syndrome of left shoulder AMB Joint Injection/Aspiration 04/21/25 M25.811 - Other specified joint disorders, right shoulder Coding Level of Care Code Est Pt Level 3 (21430) Complex EM visit Add On G2211 Diagnoses Impingement syndrome of left shoulder M75.42 Impingement of right shoulder M25.811 CPT Codes Coding - 69064 Large joint: 60880 - Large joint ([id number]) Coding - 70681 Large joint: 50140 - Large joint ([id number])
[2025-04-21 14:52] VITALS: BMI 33.2
--- OUTSIDE RECORDS SUMMARY | 2025-04-21 15:09 | XMS_ITS | Clinical Summary ---
Author Organization [facility] Address [address] [place] [address] Care Team Providers Care Clinical Research Administrator Name Role Phone Unavailable Primary Care Provider Unavailabl e Surgical History Surgery Date Site/Laterality Comments TOTAL KNEE ARTHROPLASTY 2009 PROCEDURE:TOTAL KNEE ARTHROPLASTY;COMMENT:right LITHOTRIPSY PROCEDURE:LITHOTRIPSY COLONOSCOPY PROCEDURE:COLONOSCOPY TOTAL KNEE ARTHROPLASTY 01/18/2017 Left PROCEDURE:TOTAL KNEE ARTHROPLASTY;COMMENT:Procedure: REPLACEMENT TOTAL KNEE; Surgeon: Alan Hammond MD; [facility]: [facility]); Service: Orthopedics; Laterality: Left; Medical History [...] 2015 COVID-19 Vaccine (2023-2 5 season) 2024 Depression Screening 09/11/2024 Influenza Vaccine (#1) 2025 HIB Vaccines Aged Out No longer [...]
--- OUTSIDE RECORDS SUMMARY | 2025-04-21 15:09 | XMS_ITS | Patient Health Record ---
[facility] Address [address] [place] [address] Care Team Providers Care Cementer Hand Name Role Phone Casey Grossman Primary Care Provider Unavaila ble Vinita Perez Unavailable [phone] Reason For Referral No Information Medications Medication SIG (Take, Route, Frequency, Duration) Notes Start Date End Date Status Losartan Potassium A ctive Levothyroxine Sodium Active Night Splint AFO - L1930 as directed 2016 Active Meclizine HCl Active Multi Vitamin Daily Active Garlique Active Aspirin Active Atorvastatin Calcium Active Social History Tobacco use other than smoking: Question Answer Notes Are you an other tobacco user? No Problems No Known Problems Plan Of Treatment No Information Insurance Providers Payer Name Payer Address Payer Phone Subscriber Number Group Number Insured Name Patient Relationship to Insured Coverage Start Date Coverage End Date Medicare National Govt [employer] [address] [place] [phone] [id number] Sherman Santos Self - patient is the insured AARP Secondary to Medicare [address] [place] [address] [id number] Sherman Santos Self - patient is the insured Medical (General) History Medical History History ICD Code High blood pressure Reflux Thyroid disorder Hospitalization History Reason Date(Month/Year) [place] pt blacked out and had a fall. Pt was told he was dehydrated. 05/10/16
--- OUTSIDE RECORDS SUMMARY | 2025-04-21 15:09 | XMS_ITS | Clinical Summary ---
Author Organization [facility] Address [address] [place] [phone] Phone Care Team Providers Care Human Resources Receptionist Name Role Phone Unavailable Primary Care Provider Unavailabl e Social History Tobacco Use Types Packs/Day Years Used Date Smoking Tobacco: Never Assessed Education Answer Date Recorded Are you interested in more education? Not on alireza e 01/06/2023 Are you concerned about learning? Not on file 01/06/2023 No 01/06/2023 No 01/06/2023 Digital Access Answer Date Recorded No 02/04/2023 No 02/04/2023 No 02/04/2023 Reliable internet access at home? Not on file 02/04/2023 Device with a working camera? Not on file Sex and Gender Information Value Date Recorded Sex Assigned at Not on file Legal Sex Male 11:34 AM EDT Gender Identity Not on file Sexual Orientation Not on file Plan of Treatment Health Maintenance Due Date Last Done Comments Adult Td,Tdap Booster 1940 DEPRESSION SCREENING 1952 PNEUMOCOCCAL VACCINES (50+ y ears) (1 of 1 - PCV) 1990 ZOSTER VACCINES (1 of 2) 1990 RSV VACCINE (1 - 1-dose 75+ series) 2015 COVID-19 VACCINE (2023-2 5 season) 2024 HEPATITIS A VACCINES Aged Out No long er eligible based on patient's age to complete this topic HIB VACCINES Aged Out No longer eligi ble based on patient's age to complete this topic MENINGOCOCCAL VACCINES (ACWY) Aged Out No longer eligible based on patient's age to complete this topic MENINGOCOCCAL VACCINES (B) Aged Out N o longer eligible based on patient's age to complete this topic Medical Devices Not on file Insurance MEDICARE PART A & B MEDICARE SUPPLEMENT MEDICARE PART A & B [facility] MEDICARE SUPPLEMENT [facility] Address: [facility] [id number] [place] [address] MEDICARE PART A & B [facility] MEDICARE SUPPLEMENT [facility] Address: [place] [id number] [place] [address] MEDICARE PART A & B MEDICARE SUPPLEMENT MEDICARE PART A & B MEDICARE SUPPLEMENT MEDICARE PART A & B MEDICARE SUPPLEMENT [facility] Address: [facility] [id number] [place] [address] MEDICARE PART A & B MEDICARE SUPPLEMENT [facility] Address: [facility] [id number] [place] [phone] MEDICARE PART A & B MEDICARE SUPPLEMENT [facility] Address: [facility] [id number] [place], [place] [phone] MEDICARE PART A & B MEDICARE SUPPLEMENT Additional Source Comments The information contained in this document represents components of the legal health record. It is not the complete legal health record.[facility]
--- OUTSIDE RECORDS SUMMARY | 2025-04-21 15:09 | XMS_ITS | Patient Health Record ---
Author Organization [facility] Address [address] [place] [address] Care Team Providers Care Rn Integrated Name Role Phone Ladonna Dawson Primary Care [...] Problem Status W/U Status Risk Notes Problem [id number] Other dysphagia (R13.19) Active confirmed Problem Dysphagia (R13.10) Active confirmed Problem [id number] Abnormal barium swallow (R93.3) Active confirmed Plan Of Treatment Future Test Test Name Order Date UPPER GI ENDOSCOPY 05/08/2023 Insurance Providers Payer Name Payer Address Payer Phone Subscriber Number Group Number Insured Name Patient Relationship to Insured Coverage Start Date Coverage End Date MED[place]ARE OF [place] [address] [place] [address] [id number] THEOCLES, THEOCLITOS Self - patient is the insured [facility] SUPPLEMENT AL PLAN [address] [place] [address] [phone] [id number] THEOCLES, THEOCLITOS Self - patient is the insured Medical (General) History Medical History History ICD Code Hypertension Hypothyroidism Hyperlipidemia Chronic kidney disease Back pain Enlarged prostate Aortic root aneurysm Surgical History Surgery Date(Month/Year) knee replacements 2009, 2016 bilateral
--- OUTSIDE RECORDS SUMMARY | 2025-04-21 15:09 | XMS_ITS | Clinical Summary ---
Author Organization [facility] Address [address] [place] [address] Care Team Providers Care Process Coordinator Name Role Phone Unavailable Primary Care Provider [...] 61 01/20/2017 9:01 AM EDT Temperature 36.5 C (97.7 F) 01/20/2017 9:01 AM EDT Respiratory Rate 16 01/20/2017 9:01 AM EDT Oxygen Saturation 98% 01/20/2017 9:01 AM EDT Inhaled Oxygen Concentration - - Weight 98.9 kg (218 lb) 01/18/2017 6:27 PM EDT Height 177.8 cm (5' 10 ) 01/18/2017 6:27 PM EDT Body Mass Index 31.28 01/18/2017 6:27 PM EDT Plan of Treatment Not on file Medical Devices Implanted Type Area Pony Roll Finisher Device Identifier Shelf Expiration Date Model / Serial / Lot Cement Simplex P Radiopaque Full Dose Bone 10 Pack - [id number] - [id number] Implanted:Qty: 1 on 01/18/2017 by Alan Hammond MD at [facility] and [facility] Left: Knee [employer] 04/20/2019 [id number] / / Cement Simplex P Radiopaque Full Dose Bone 10 Pack - [id number] - [id number] Implanted:Qty: 1 on 01/18/2017 by Alan Hammond MD at [facility] and [facility] Left: Knee [employer] 04/20/2019 [id number] / / Component Cr-Flex Option Nexgen G- 76.5x68.5mm Cement - [id number] - [id number] Implanted:Qty: 1 on 01/18/2017 by Alan Hammond MD at [facility] and [facility] Left: Knee [employer] 02/08/2025 [id number] / / [id number] Plate Nexgen [id number] Cement Modular Stem Tivanium Pmma - [id number] - [id number] Implanted:Qty: 1 on 01/18/2017 by Alan Hammond MD at [facility] and [facility] Left: Knee [employer] 11/08/2024 [id number] / / [id number] Component Ptlar Std 9mm 38mm Nexgen Alply Uhmwpe Knee Strl - [id number] - [id number] Implanted:Qty: 1 on 01/18/2017 by Alan Hammond MD at [facility] and [facility] Left: Knee [employer] 04/10/2024 [id number] / / [id number] Insert Cr-Flex Nexgen 7-10 C-H Standard [id number] Net Mold - [id number] - [id number] Implanted:Qty: 1 on 01/18/2017 by Alan Hammond MD at [facility] and [facility] Left: Knee [employer] 01/08/2022 [id number] / / [id number] Kit Cap Knee Pricing Cement Flex Tkr - [id number] - [id number] Implanted:Qty: 1 on 01/18/2017 by Alan Hammond MD at [facility] and [facility] Left: Knee [employer] [id number] / / Advance Directives For more information, please contact: [phone] Latest Code Status on File Code Status Date Activated Date Inactivated Comments Full Code 01/18/2017 5:32 PM 01/20/2017 7:42 PM This code status was ascertained in the following way: discussion with healthcare provider relations representative. Code Status History Code Status Date Activated Date Inactivated Comments Full Code 01/18/2017 10:48 AM 01/18/2017 5:32 PM This code status was ascertained in the following way: discussion with patient.
== END 2025-04-21 15:07 | disposition home or self-care (01) ==
LOC: HO.HOS 14:46
PROVIDERS: PCP Internal Medicine; Visit Provider Orthopaedic Surgery
DX: M75.42 Impingement syndrome of left shoulder (principal); M25.811 Other specified joint disorders, right shoulder
CPT/HCPCS: 20610; 99213

== ENCOUNTER → 2025-04-21 14:45 | Outpatient (BNVA) | payer MEDICARE, SELFPAY | PROVIDERS: PCP Internal Medicine; Visit Provider Orthopaedic Surgery | DX: M75.42 Impingement syndrome of left shoulder (principal); M25.811 Other specified joint disorders, right shoulder; M25.512 Pain in left shoulder; M25.511 Pain in right shoulder; M25.612 Stiffness of left shoulder, not elsewhere classified; M25.611 Stiffness of right shoulder, not elsewhere classified | CPT/HCPCS: 20610; 99212; J1010; J2003 ==